=== PATIENT | female | born 1980 | race Caucasian/White ===

== ENCOUNTER 2021-08-15 12:17 | Emergency (ER) | payer OTHER ==
[2021-08-15 12:25] VITALS: BP 129/88; PULSE 88; TEMP 98; BMI 35.5
[2021-08-16 12:12] LABS: SARS-CoV-2 NAA Not Detected (Not Detected)
== END 2021-08-15 14:34 | disposition home or self-care (01) ==
LOC: JER 12:17
DX: J06.9 Acute upper respiratory infection, unspecified (principal); Z20.822 Contact with and (suspected) exposure to COVID-19
CPT/HCPCS: 87651; 87804; 99283-25; C9803-CS; U0003; U0005

== ENCOUNTER 2024-08-05 09:11 | Emergency (ER) | payer OTHER ==
[2024-08-05 09:38] VITALS: BP 124/86; PULSE 80; RESP 20; TEMP 97.9; BMI 33.9
[2024-08-05] MEDS ORDERED: guaiFENesin/D-METHORPHAN HB 10 ML UNIT-DOSE CUPS ONE (09:52)
[2024-08-05] MEDS: guaiFENesin/D-METHORPHAN HB 10 ML UNIT-DOSE CUPS PO ONE (09:58)
== END 2024-08-05 10:28 | disposition home or self-care (01) ==
LOC: JERFT 09:11
DX: R51.9 Headache, unspecified (principal); J98.9 Respiratory disorder, unspecified; B97.89 Other viral agents as the cause of diseases classified elsewhere; J02.9 Acute pharyngitis, unspecified; R05.9 Cough, unspecified; R53.83 Other fatigue
CPT/HCPCS: 0241U-QW; 71046-TC-FY; 99284-25